=== PATIENT | male | born 1965 | race Caucasian/White ===

== ENCOUNTER 2019-03-02 05:49 | Day surgery (SDC) | payer BC ==
[2019-02-26 13:52] VITALS: BMI 37.8
[2019-03-02] MEDS ORDERED: EPINEPHrine 1:1,000 1 MG/1 ML - 30ML VIAL (INJECTION) ONE (07:14)
[2019-03-02] MEDS ORDERED: BUPIVACAINE HCL/PF 2.5 MG/ML - 30 ML VIAL IJ ONE (07:14)
[2019-03-02] MEDS ORDERED: PROPOFOL 20 ML ONE (07:36)
[2019-03-02] MEDS ORDERED: SUCCINYLCHOLINE CHLORIDE 200 MG/10 ML VIAL ONE (07:36)
[2019-03-02] MEDS ORDERED: MIDAZOLAM HCL 2 MG/2 ML SINGLE DOSE VIAL ONE (07:37)
[2019-03-02] MEDS ORDERED: GLYCOPYRROLATE 0.2 MG/1 ML VIAL ONE (07:59)
[2019-03-02] MEDS ORDERED: KETOROLAC TROMETHAMINE 30 MG/1 ML VIAL ONE (07:59)
[2019-03-02] MEDS ORDERED: ceFAZolin SODIUM 1 GM VIAL ONE (07:59)
[2019-03-02] MEDS ORDERED: LIDOCAINE HCL/PF 2% SDV 5ML VIAL ONE (07:59)
[2019-03-02] MEDS ORDERED: ONDANSETRON 4 MG/2 ML VIAL ONE ×2 (07:59→08:52)
[2019-03-02] MEDS ORDERED: DEXAMETHASONE SOD PHOSPHATE 4 MG/1 ML VIAL ONE (07:59)
[2019-03-02] MEDS ORDERED: BUPIVACAINE HCL/PF 0.25% (2.5MG/ML) 10 ML VIAL IJ ONE (08:24)
[2019-03-02] MEDS ORDERED: ONDANSETRON 4 MG/2 ML VIAL IVPUSH PRN (08:43)
[2019-03-02] MEDS ORDERED: PROMETHAZINE HCL 25 MG/1 ML VIAL IVPUSH PRN (08:43)
[2019-03-02] MEDS ORDERED: oxyCODONE HCL 5 MG TABLET PO PRN ×2 (08:43)
[2019-03-02 10:44] VITALS: TEMP 97.9
[2019-03-02 10:47] VITALS: BP 127/83; PULSE 80
--- NOTE | 2019-03-02 14:16 | OP ---
DATE OF OPERATION: 03/02/2019 PREOPERATIVE DIAGNOSES: 1. Left knee medial and lateral meniscal tear. 2. Left knee cartilage injury. 3. Left knee synovitis. POSTOPERATIVE DIAGNOSES: 1. Left knee medial and lateral meniscal tear. 2. Left knee cartilage injury. 3. Left knee synovitis. PROCEDURE: 1. Left knee arthroscopy, partial meniscectomy, medial and lateral meniscus. CPT code 19463. 2. Left knee arthroscopy with chondroplasty and abrasoplasty. CPT code 04554. 3. Left knee arthroscopy with synovectomy. CPT code 60159. SURGEON: Dr. Hayder Krishnan PERSONAL LINES ACCOUNT EXECUTIVE: CALEB Orellana FINDINGS: 1. Medial meniscus body to posterior horn tear, central one-third, with central portion going back to posterior rim. 2. Lateral meniscus central body tear and separate posterior horn tear. 3. Synovitis of the patellofemoral, mediolateral notch. 4. Extensive grade 2-3 cartilage injury, medial femoral condyle and tibial plateau, with smaller grade 4 changes anteromedial tibial plateau. 5. ACL and PCL intact. 6. Grade 2 cartilage injury, lateral joint line, with grade 4 changes 4 cm x 2 cm on posteromedial portion of lateral tibial plateau. 7. Central grade 2-4 cartilage injury patella, patellofemoral trochlea. PROCEDURE: Informed consent was obtained. The patient came to the operating room, where the lower extremity was prepped and draped in a sterile fashion. A tourniquet was placed on the upper thigh, but not inflated. Using standard arthroscopic technique, a lateral incision and portal was made to allow for introduction of the camera into the suprapatellar bursa. This was then taken to the medial joint line, where under direct visualization, a medial incision and portal was made. Excessive synovium noted in the medial, lateral and patellofemoral and notch area was removed by an upbiter, shaver and Bovie cautery. This was found to bring in inflammatory tissue into the joint surface, a source of pain and dysfunction. Probing of the medial and lateral meniscus found tears, as described in the findings. These were removed with the upbiter and shaver and taken back to a stable rim. Grade 2 to 3 degenerative changes were treated with a chondroplasty, removing all flaking surfaces with low-setting Bovie along the periphery to prevent further flaking. Grade 4 changes, as noted, were treated with an abrasoplasty, creating a bleeding surface at the bone/cartilage interface. Aggressive debridement with shaver/wayne created bleeding surface. Micro fracture also done when indicated in findings. All areas of the knee were once again reexamined. The knee was then drained and a single suture was placed in all portals. A sterile dressing was placed and the patient was transferred to the recovery room without complication. The PA listed above was present and assisted at surgery. Their presence was absolutely medically necessary for the completion of the procedure. They helped hold the arthroscopy, pass instruments (and implants when indicated) and the procedure could not have been completed without their assistance. HAYDER KRISHNAN M.D. [id number]
--- NOTE | 2019-03-06 15:33 | PATH ---
Surgical Pathology Report Patient Name: JUDY CYR Med. Rec. #: [id number] /Age/Gender: 1965 (Age: 53) / M Account: [id number] Location: [facility] Taken: 03/02/2019 Received: 03/02/2019 Reported: 03/06/2019 Physicians: Hayder Iqbal M.D. Specimen(s) Received LEFT KNEE SHAVINGS Clinical History Left knee internal derangement Final Diagnosis KNEE SHAVINGS, LEFT, ARTHROSCOPY, MEDIAL/LATERAL MENISCECTOMY, SYNOVECTOMY, CHONDROPLASTY: FRAGMENTS OF DENSE FIBROCONNECTIVE TISSUE, ADIPOSE TISSUE, AND FIBROSYNOVIAL TISSUE WITH PROMINENT LYMPHOPLASMACYTIC (CHRONIC) INFLAMMATORY INFILTRATE AND REACTIVE SYNOVIAL HYPERPLASIA. Comment: Although these findings are non-specific, dense lymphoplasmacytic infiltrate involving synovium with reactive synovial hyperplasia may be seen in association with rheumatoid arthritis. Correlation with clinical/radiologic and serologic findings is suggested. Electronically Signed Ayde Hurtado M.D. Gross Description Received in formalin, labeled "left knee shavings," is a 5.0 x 4.5 x 0.4 cm. aggregate of quan-yellow soft tissue fragments. A product support representative portion is submitted in one cassette. 03/05/201903/05/2019
== END 2019-03-02 10:25 | disposition home or self-care (01) ==
LOC: FASU 05:49
PROVIDERS: ATTEND Orthopaedic Surgery
PROC: 0SBD4ZZ Excision of Left Knee Joint, Percutaneous Endoscopic Approach (ICD-10-PCS; 2019-03-02)
PROC: 0SBD4ZZ Excision of Left Knee Joint, Percutaneous Endoscopic Approach (ICD-10-PCS; 2019-03-02)
PROC: 0SBD4ZZ Excision of Left Knee Joint, Percutaneous Endoscopic Approach (ICD-10-PCS; principal; 2019-03-02 08:05)
DX: S83.242A Other tear of medial meniscus, current injury, left knee, initial encounter (principal); S83.282A Other tear of lateral meniscus, current injury, left knee, initial encounter; S83.8X2A Sprain of other specified parts of left knee, initial encounter; M65.862 Other synovitis and tenosynovitis, left lower leg; X58.XXXA Exposure to other specified factors, initial encounter; Y93.9 Activity, unspecified; Y92.9 Unspecified place or not applicable
CPT/HCPCS: 88304-TC; 94760